=== PATIENT | male | born 1990 | race Caucasian/White ===

== ENCOUNTER 2020-09-17 12:07 | Observation (INO) ==
[2020-09-17] MEDS ORDERED: PROMETHAZINE 25 MG/1 ML VIAL IM PRN (13:24)
[2020-09-17] MEDS ORDERED: ONDANSETRON 4 MG/2 ML VIAL IV PRN (13:24)
[2020-09-17] MEDS ORDERED: ACETAMINOPHEN 325 MG TABLET PO PRN (13:24)
[2020-09-17] MEDS: HYDROmorphone 2 MG/1 ML VIAL IV PRN ×3 (14:07→23:50)
[2020-09-17 15:05] LABS: Basophils % 0.3 % (0.0-0.8); Eosinophils # 0.3 10*3/uL (0.0-0.87); Eosinophils % 2.7 % (0.00-10.9); Hemoglobin 13.5 GM/DL (14.0-18.0); Immature Granulocytes % 0.4 %; Immature Granulocytes Absolute 0.04 #; Lymphocytes % 10.4 % (21.2-54.2); Mean Corpuscular HGB Conc 32.9 GM/DL (32-36); Mean Corpuscular Volume 88.6 FL (87-102); Mean Platelet Volume 11.1 FL (9.6-12.0); Monocytes % 7.1 % (1.7-12.7); Neutrophils % 79.1 % (38.7-73.9); Platelet Count 216 T/CUMM (130-400); Red Blood Count 4.63 MC/CUMM (3.8-5.5); Red Cell Distribution Width 12.5 % (9.3-17.3); White Blood Count 9.5 T/CUMM (4-12)
[2020-09-17 15:22] LABS: Calcium 9.2 MG/DL (8.5-10.1); Osmolality,Calculated 273.8 MOS/KG (273-304); Potassium 4.1 MMOL/L (3.5-5.1)
[2020-09-17] MEDS: SODIUM CHLORIDE 0.9% 1,000 ML IV SCH (16:23)
[2020-09-17] MEDS ORDERED: oxyCODONE/ACETAMINOPHEN 5-325 MG TABLET PO PRN (16:52)
[2020-09-17] MEDS ORDERED: TAMSULOSIN 0.4 MG CAPSULE PO SCH (21:00)
[2020-09-18] MEDS ORDERED: BISACODYL 10 MG SUPP RECTAL ONE (00:43)
[2020-09-18] MEDS: SODIUM CHLORIDE 0.9% 1,000 ML IV SCH ×2 (01:46→16:09)
[2020-09-18] MEDS: HYDROmorphone 2 MG/1 ML VIAL IV PRN ×2 (04:20→10:22)
[2020-09-18] MEDS ORDERED: fentaNYL 100 MCG/2 ML VIAL ONE (11:37)
[2020-09-18] MEDS ORDERED: propofoL 200 MG/20 ML VIAL IV ONE (11:37)
[2020-09-18] MEDS ORDERED: LIDOCAINE 2% 5 ML VIAL ONE (11:37)
[2020-09-18] MEDS ORDERED: MIDAZOLAM 2 MG/2 ML VIAL ONE (11:37)
[2020-09-18] MEDS ORDERED: LACTATED RINGERS 1,000 ML IV SCH (13:00)
[2020-09-18] MEDS ORDERED: ONDANSETRON 4 MG/2 ML VIAL ONE (13:25)
[2020-09-18] MEDS ORDERED: DEXAMETHASONE 4 MG/1 ML VIAL ONE (13:25)
[2020-09-18] MEDS ORDERED: GENTAMICIN 80 MG/2 ML VIAL ONE (13:33)
[2020-09-18] MEDS ORDERED: SEVOFLURANE 1 UNIT/15 MINUTE INH ONE (14:11)
[2020-09-18 15:19] VITALS: BP 138/69
== END 2020-09-18 16:37 | disposition home or self-care (01) ==
LOC: N.RAD 12:07 → INTOOBSV 13:17 → N.5E 13:17
PROVIDERS: ADMIT Surgery; ATTEND Physician Assistant Surgical